=== PATIENT | male | born 1990 | race Caucasian/White ===

== ENCOUNTER 2024-11-01 22:39 | Emergency (ER) | payer MEDICAID ==
[~2024-11-01] VITALS: Ht 170.2 cm; Wt 84.4 kg
[~2024-11-01 22:39] MED LIST: APIX5TAB PO; BISA PO; FAMO20TA8 PO; FERR325T6 PO; FOLI-43 PO; IBUP-2030 PO; RIFA300C66 PO; THIA100T72 PO
[2024-11-01 22:42] VITALS: O2SAT 93
[2024-11-01 23:22] VITALS: BP 134/87; PULSE 96; RESP 18; TEMP 37; O2SAT 93
== END 2024-11-01 23:24 | disposition home or self-care (01) ==
LOC: ER 22:39
DX: M79.601 Pain in right arm (principal); Z45.2 Encounter for adjustment and management of vascular access device; F12.90 Cannabis use, unspecified, uncomplicated; F11.90 Opioid use, unspecified, uncomplicated; F14.90 Cocaine use, unspecified, uncomplicated; Z79.899 Other long term (current) drug therapy; Z87.891 Personal history of nicotine dependence; Z86.61 Personal history of infections of the central nervous system; Z79.01 Long term (current) use of anticoagulants
CPT/HCPCS: 99281